=== PATIENT | female | born 1990 | race Caucasian/White ===

== ENCOUNTER 2016-04-15 20:25 | Emergency (ER) | payer OTHER ==
[2016-04-15 21:36] LABS: BASO % 0.6 % (0.0-1.0); EOS # 0.1 K/mm3 (0.0-0.50); EOS % 1.1 % (0.0-3.0); LARGE UNSTAINED CELL # 0.2 K/mm3 (0.0-0.4); LARGE UNSTAINED CELL % 2.4 % (0.0-4.0); LYMPH # 2.9 K/mm3 (1.5-6.5); LYMPH % 34.1 % (24.0-44.0); MEAN CORPUSCULAR HEMOGLOBIN 28.2 pg (27.0-33.0); MEAN CORPUSCULAR HGB CONC 33.6 g/dl (32.0-36.5); MEAN CORPUSCULAR VOLUME 83.9 fl (80.0-96.0); MONO # 0.4 K/mm3 (0.0-0.8); MONO % 4.9 % (0.0-5.0); NEUTROPHILS # 4.8 K/mm3 (1.8-7.7); NEUTROPHILS % 56.8 % (36.0-66.0); PLATELET COUNT, AUTOMATED 371 k/mm3 (150-450); RED CELL DISTRIBUTION WIDTH 13.3 % (11.5-14.5); WHITE BLOOD COUNT 8.4 K/mm3 (4.0-10.0)
--- NOTE | 2016-04-16 | REPUSA ---
CLINICAL HISTORY: , pain TECHNIQUE: Pelvic ultrasound COMPARISON: No study for comparison is available at the time of interpretation. Uterus: Normal without masses. Endometrial stripe: Early gestational sac with yolk sac, without pole. Ovaries: Normal size. 1.7 cm left corpus luteal cyst. Pelvic fluid: None. IMPRESSION: Gestational sac at 5 weeks 5 days, with yolk sac but without pole. Recommended clos e clinical correlation with serial beta hCG's to establish viability, and follow-up ultrasound if bet a hCG's are increasing.
--- NOTE | 2016-04-16 00:09 | EDDOCDS ---
Physician Documentation [facility] Name: Polly Mercado Age: 26 yrs Sex: Female : 1990 Arrival Date: 04/15/2016 Time: 20:25 Bed TR7 Private MD: Hari Dalton R Disposition: 04/15/16 23:58 Discharged to Home/Self Care. Impression: Abdominal and pelvic pain - discomfort of , first trimester. - Condition is Stable. - Discharge Instructions: First Trimester of , Abdominal Pain During . - Medication Reconciliation, Local Pharmacy Hours form. - Follow up: Anthony Sheppard MD; When: Call to arrange an appointment; Reason: Recheck today's complaints, Continuance of care. Follow up: Emergency Department; When: As needed; Reason: Fever > 102F, Worsening of conditions, vaginal bleeding. - Problem is new. - Symptoms are unchanged. Historical: - Allergies: Latex; - Home Meds: 1. none - PMHx: Seasonal Allergies; - PSHx: ; Orthopedic Surgery; - Social history: Smoking status: Patient states was never smoker of tobacco. No barriers to communication noted, The patient speaks fluent Togolese, Speaks appropriately for age. - Family history: Not pertinent. - : The pt / caregiver states he / she is not on anticoagulants. Home medication list is obtained from the patient. - Exposure Risk Screening:: None identified. 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 6 in. (167.64 cm) (R); Pain 4/10; 23:52 BP 129 / 62; Pulse 90; Resp 16; Temp 98.2(T); Pulse Ox 98% on R/A; cz 20:27 Body Mass Index 37.12 (104.33 kg, 167.64 cm) gr2 MDM: 21:16 Set up pelvic ordered. ar2 21:17 Rh Only Ordered. EDMS 21:17 CBC with Diff Ordered. EDMS 21:17 Hcg, Serum Quantitative Ordered. EDMS 21:17 UA Ordered. EDMS 21:17 GC & Chlamydia Amplification Ordered. EDMS 21:17 Wet Prep Ordered. EDMS 21:17 US 1st trimester Ordered. EDMS 22:06 CBC with Diff Reviewed. ar2 22:06 Rh Only Reviewed. ar2 22:06 UA Reviewed. ar2 22:06 Wet Prep Reviewed. ar2 22:44 Financial registration complete. ks16 22:49 [facility] Payment Agreement was scanned into [employer] and attached to record. ks16 22:57 Hcg, Serum Quantitative Reviewed. ar2 Signatures: Dispatcher [employer] EDMS Trevor Coffman, GARETH RN cz Aaron Yañez PA-C PARuss ar2 Sabrina Tavera RN RN dsf Mahogany Cohen, Reg Reg ks16 The chart was reviewed and I authenticate all verbal orders and agree with the evaluation and treatment provided.Attachments: 22:49 [facility] Payment Agreement ks16 MTDD
--- NOTE | 2016-04-16 00:09 | EDDOCDS ---
Nurse's Notes [facility] Name: Polly Mercado Age: 26 yrs Sex: Female : 1990 Arrival Date: 04/15/2016 Time: 20:25 Bed TR7 Private MD: Hari Dalton R Diagnosis: Abdominal and pelvic pain-discomfort of , first trimester Presentation: 04/15 20:34 Presenting complaint: Patient states: abdominal cramping and a vaginal odor. Pt states dsf she had discharge 1 week ago but noticed an odor this morning. Risk factors: the patient reports no vaginal bleeding. Adult Sepsis Screening: The patient does not have new or worsening altered mentation. Patient's respiratory rate is less than 22. Systolic blood pressure is greater than 100. Patient has a qSOFA score of 0- Negative Sepsis Screen. Suicide/Homicide risk assessment- the patient denies having any suicidal and/or homicidal ideations and does not present with any other emotional, behavioral or mental health complaints. Status: The patient is a dependent. Transition of care: patient was not received from another setting of care. 20:34 Acuity: ALIZE Level 4 dsf 20:34 Method Of Arrival: Walkin/Carried/Asstd dsf Triage Assessment: 20:36 General: Appears in no apparent distress, Behavior is appropriate for age, cooperative. dsf Pain: Location: right lower quadrant and left lower quadrant Pain currently is 4 out of 10 on a pain scale. Quality of pain is described as crampy. HIV screening NA for this visit Offered previously. GI: Reports cramping, lower abdominal pain. : Reports discharge from vagina that is white, since 1 week ago. 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 none - PMHx: Seasonal Allergies; - PSHx: ; Orthopedic Surgery; - Social history: Smoking status: Patient states was never smoker of tobacco. No barriers to communication noted, The patient speaks fluent Ethiopian, Speaks appropriately for age. - Family history: Not pertinent. - : The pt / caregiver states he / she is not on anticoagulants. Home medication list is obtained from the patient. - Exposure Risk Screening:: None identified. Screenin:53 Screening information is obtained from the patient. Fall risk: No risks identified. cz Assistance ADL's: requires no assistance with activities of daily living. Abuse/DV Screen: The patient / caregiver reports he/she is: not in a situation that causes fear, pain or injury. Nutritional screening: No deficits noted. Advance Directives: Currently, there is no health care proxy. There is no active DNR order. There is no living will. There is no Power of Weights And Measures Inspector. Advance directive information has not previously been placed in an [facility] medical record. home support is adequate. Assessment: 23:53 General: Appears in no apparent distress, Behavior is appropriate for age. : No cz deficits noted. Reports vaginal order. Vital Signs: 20:27 BP 145 / 65; Pulse 103; Resp 18 S; Temp 98.5(O); Pulse Ox 99% on R/A; Weight 104.33 kg gr2 (R); Height 5 ft. 6 in. (167.64 cm) (R); Pain 4/10; 23:52 BP 129 / 62; Pulse 90; Resp 16; Temp 98.2(T); Pulse Ox 98% on R/A; cz 20:27 Body Mass Index 37.12 (104.33 kg, 167.64 cm) gr2 Vitals: 20:27 Log In Time: April 15, 2016 at 20:27. gr2 ED Course: 20:26 Patient visited by Sherman Garduno. gr2 20:26 Patient moved to Waiting gr2 20:27 Hari Dalton is Private Physician. gr2 20:28 Patient visited by Sherman Garduno. gr2 20:28 Patient moved to Pre RCE gr2 20:35 Triage Initiated dsf 20:50 Patient moved to Triage 3 cz 20:58 Aaron Yañez PA-C is PHCP. ar2 20:58 Christo Chadwick DO is Attending Physician. ar2 21:10 Patient visited by Aaron Yañez PA-C. ar2 21:27 Patient visited by Dennis Macias RN. jf3 21:27 Rh Only Sent. jf3 21:27 Hcg, Serum Quantitative Sent. jf3 21:27 CBC with Diff Sent. jf3 21:27 Labs drawn. (by ED staff). Sent per order to lab. jf3 21:35 Wet Prep Sent. pooja 21:35 GC & Chlamydia Amplification Sent. pooja 21:35 Assist provider with pelvic exam: Set up pelvic tray. Specimens sent to lab. pooja 21:36 Patient moved to jmv 22:49 Patient visited by Trevor Coffman RN. cz 22:49 [facility] Payment Agreement was scanned into [employer] and attached to record. ks16 23:27 Patient visited by Trevor Coffman RN. cz 23:53 The patient / caregiver is instructed regarding the plan of care and ED course. cz 23:53 No IV's were initiated during this patient's visit. cz 23:56 Anthony Sheppard MD is Referral Physician. ar2 04/16 00:04 Patient moved to 7 cz Order Results: Lab Order: CBC with Diff; SPEC'M 04/15/16 21:25 Test: WHITE BLOOD COUNT; Value: 8.4; Range: 4.0-10.0; Units: K/mm3; Status: F Test: RED BLOOD COUNT; Value: 4.69; Range: 4.00-5.40; Units: M/mm3; Status: F Test: HEMOGLOBIN; Value: 13.2; Range: 12.0-16.0; Units: g/dl; Status: F Test: HEMATOCRIT; Value: 39.4; Range: 36.0-47.0; Units: %; Status: F Test: MEAN CORPUSCULAR VOLUME; Value: 83.9; Range: 80.0-96.0; Units: fl; Status: F Test: MEAN CORPUSCULAR HEMOGLOBIN; Value: 28.2; Range: 27.0-33.0; Units: pg; Status: F Test: MEAN CORPUSCULAR HGB CONC; Value: 33.6; Range: 32.0-36.5; Units: g/dl; Status: F Test: RED CELL DISTRIBUTION WIDTH; Value: 13.3; Range: 11.5-14.5; Units: %; Status: F Test: PLATELET COUNT, AUTOMATED; Value: 371; Range: 150-450; Units: k/mm3; Status: F Test: NEUTROPHILS %; Value: 56.8; Range: 36.0-66.0; Units: %; Status: F Test: LYMPH %; Value: 34.1; Range: 24.0-44.0; Units: %; Status: F Test: MONO %; Value: 4.9; Range: 0.0-5.0; Units: %; Status: F Test: EOS %; Value: 1.1; Range: 0.0-3.0; Units: %; Status: F Test: BASO %; Value: 0.6; Range: 0.0-1.0; Units: %; Status: F Test: LARGE UNSTAINED CELL %; Value: 2.4; Range: 0.0-4.0; Units: %; Status: F Test: NEUTROPHILS #; Value: 4.8; Range: 1.8-7.7; Units: K/mm3; Status: F Test: LYMPH #; Value: 2.9; Range: 1.5-6.5; Units: K/mm3; Status: F Test: MONO #; Value: 0.4; Range: 0.0-0.8; Units: K/mm3; Status: F Test: EOS #; Value: 0.1; Range: 0.0-0.50; Units: K/mm3; Status: F Test: BASO #; Value: 0.0; Range: 0.0-0.2; Units: K/mm3; Status: F Test: LARGE UNSTAINED CELL #; Value: 0.2; Range: 0.0-0.4; Units: K/mm3; Status: F Lab Order: Hcg, Serum Quantitative; SPEC'M 04/15/16 21:25 Test: HCG, SERUM QUANTITATIVE; Value: 3869; Units: MIU/ML; Status: F Test Note: ; GESTATIONAL AGE APPROXIMATE HCG RANGE (MIU/ML) 0.2-1 WEEK 5-50 1-2 WEEKS 50-500 2-3 WEEKS 100-5,000 3-4 WEEKS 500-10,000 4-5 WEEKS 1,000-50,000 5-6 WEEKS 10,000-100,000 6-8 WEEKS 15,000-200,000 2-3 MONTHS 10,000-100,000 NON FEMALES LESS THAN 3.0 Patient samples may contain human heterophilic antibodies that could react with immunoassays to give falsely elevated or depressed results. This assay has been designed to minimize interference from heterophilic antibodies. Elevated hCG levels have also been associated with trophoblastic disease and nontrophoblastic neoplasms. The possibility of having these diseases should be considered before a diagnosis of is made. This test is not intended for use as a surrogate marker for aiding in the diagnosis or monitoring the treatment of cancer patients. [employer] methodology. Lab Order: Rh Only; SPEC'M 04/15/16 21:25 Test: RH; Value: POSITIVE; Status: F Lab Order: UA; SPEC'M 04/15/16 21:25 Test: APPEARANCE, URINE; Value: HAZY; Range: CLEAR; Status: F Test: COLOR, URINE; Value: YELLOW; Range: YELLOW; Status: F Test: PH,URINE; Value: 5.0; Range: 5.0-9.0; Units: UNITS; Status: F Test: SPECIFIC GRAVITY URINE AUTO; Value: 1.016; Range: 1.002-1.035; Status: F Test: PROTEIN, URINE AUTO; Value: NEGATIVE; Range: NEGATIVE; Units: mg/dL; Status: F Test: GLUCOSE, URINE (UA) AUTO; Value: NEGATIVE; Range: NEGATIVE; Units: mg/dL; Status: F Test: KETONE, URINE AUTO; Value: NEGATIVE; Range: NEGATIVE; Units: mg/dL; Status: F Test: UROBILINOGEN, URINE AUTO; Value: 0.2; Range: 0.0-2.0; Units: mg/dL; Status: F Test: BILIRUBIN, URINE AUTO; Value: NEGATIVE; Range: NEGATIVE; Status: F Test: NITRITE, URINE AUTO; Value: NEGATIVE; Range: NEGATIVE; Status: F Test: LEUKOCYTE ESTERASE, URINE AUTO; Value: NEGATIVE; Range: NEGATIVE; Status: F Test: BLOOD, URINE BLOOD; Value: NEGATIVE; Range: NEGATIVE; Status: F Test: WBC, URINE AUTO; Value: 1; Range: 0-3; Units: /HPF; Status: F Test: RBC, URINE AUTO; Value: 3; Range: 0-3; Units: /HPF; Status: F Test: BACTERIA, URINE AUTO; Value: NEGATIVE; Range: NEGATIVE; Status: F Test: SQUAMOUS EPITHELIAL CELL UR AU; Value: 6; Range: 0-6; Units: /HPF; Status: F Test: MUCUS, URINE; Value: SMALL; Range: NEGATIVE; Status: F Test: HYALINE CAST, URINE AUTO; Value: 0; Range: 0-1; Units: /LPF; Status: F Lab Order: Wet Prep; SPEC'M 04/15/16 21:25 Test: WET PREP; Value: WET PREP RESULT; Status: F Test: WET PREP; Value: MODERATE WBC; Status: F Test: WET PREP; Value: FEW RBC; Status: F Test: WET PREP; Value: MODERATE EPITHELIAL CELLS PRESENT; Status: F Test: WET PREP; Value: MANY LONG RODS PRESENT; Status: F Outcome: 04/15 23:58 Discharge ordered by Provider. ar2 04/16 00:05 Discharge Assessment: Patient awake, alert and oriented x 3. No cognitive and/or cz functional deficits noted. Patient verbalized understanding of disposition instructions. patient administered narcotics - no. The following High Risk Discharge criteria are identified: None. Discharged to home ambulatory. Condition: stable. Discharge instructions given to patient, Instructed on discharge instructions, follow up and referral plans. Demonstrated understanding of instructions, Pt was receptive of discharge instructions/ teaching. No special radiology studies were completed. Property :Personal belongings accompany Pt. 00:07 Patient left the ED. cz Signatures: Trevor Coffman, RN RN Aaron John, PAJohnnieC PA-C ar2 Pretty Espinal, COMPUTER TESTER COMPUTER TESTER Sabrina Paulson,RN RN Sherman Iraheta gr2 Dennis Macias RN RN jf3 Mahogany Cohen, Reg Reg ks16 Sj Martin, COMPUTER TESTER COMPUTER TESTER jmv MTDD
--- NOTE | 2016-04-18 12:05 | EDDOCDS ---
Physician Documentation [facility] Name: Polly Mercado Age: 26 yrs Sex: Female : 1990 Arrival Date: 04/15/2016 Time: 20:25 Bed TR7 Private MD: Hari Dalton R Disposition: 04/15/16 23:58 Discharged to Home/Self Care. Impression: Abdominal and pelvic pain - discomfort of , first trimester. - Condition is Stable. - Discharge Instructions: First Trimester of , Abdominal Pain During . - Medication Reconciliation, Local Pharmacy Hours form. - Follow up: Anthony Sheppard MD; When: Call to arrange an appointment; Reason: Recheck today's complaints, Continuance of care. Follow up: Emergency Department; When: As needed; Reason: Fever > 102F, Worsening of conditions, vaginal bleeding. - Problem is new. - Symptoms are unchanged. Historical: - Allergies: Latex; - Home Meds: 1. none - PMHx: Seasonal Allergies; - PSHx: ; Orthopedic Surgery; - Social history: Smoking status: Patient states was never smoker of tobacco. No barriers to communication noted, The patient speaks fluent Kosovan, Speaks appropriately for age. - Family history: Not pertinent. - : The pt / caregiver states he / she is not on anticoagulants. Home medication list is obtained from the patient. - Exposure Risk Screening:: None identified. 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 6 in. (167.64 cm) (R); Pain 4/10; 23:52 BP 129 / 62; Pulse 90; Resp 16; Temp 98.2(T); Pulse Ox 98% on R/A; cz 20:27 Body Mass Index 37.12 (104.33 kg, 167.64 cm) gr2 MDM: 21:16 Set up pelvic ordered. ar2 21:17 Rh Only Ordered. EDMS 21:17 CBC with Diff Ordered. EDMS 21:17 Hcg, Serum Quantitative Ordered. EDMS 21:17 UA Ordered. EDMS 21:17 GC & Chlamydia Amplification Ordered. EDMS 21:17 Wet Prep Ordered. EDMS 21:17 US 1st trimester Ordered. EDMS 22:06 CBC with Diff Reviewed. ar2 22:06 Rh Only Reviewed. ar2 22:06 UA Reviewed. ar2 22:06 Wet Prep Reviewed. ar2 22:44 Financial registration complete. ks16 22:49 [facility] Payment Agreement was scanned into [employer] and attached to record. ks 22:57 Hcg, Serum Quantitative Reviewed. [facility] 04/16 08:28 T-Sheet-- Draft Copy was scanned into [employer] and attached to record. [facility] 08:52 Radiology Report was scanned into [employer] and attached to record. gb Signatures: Dispatcher [employer] Trevor Heredia, Hortensia Shah RN, Reg Reg gb Aaron Yañez, PARuss CORTES ar2 Sabrina Tavera RN RN dsf Sorenson, Kimberly, Reg Reg ks16 Concetta Boudreaux se The chart was reviewed and I authenticate all verbal orders and agree with the evaluation and treatment provided.Attachments: 04/15 22:49 [facility] Payment Agreement rust 04/16 08:28 T-Sheet-- Draft Copy [facility] Chart Complete MTDD
--- NOTE | 2016-04-18 12:05 | EDDOCDS ---
Physician Documentation [facility] Name: Polly Mercado Age: 26 yrs Sex: Female : 1990 Arrival Date: 04/15/2016 Time: 20:25 Bed TR7 Private MD: Hari Dalton R Disposition: 04/15/16 23:58 Discharged to Home/Self Care. Impression: Abdominal and pelvic pain - discomfort of , first trimester. - Condition is Stable. - Discharge Instructions: First Trimester of , Abdominal Pain During . - Medication Reconciliation, Local Pharmacy Hours form. - Follow up: Anthony Sheppard MD; When: Call to arrange an appointment; Reason: Recheck today's complaints, Continuance of care. Follow up: Emergency Department; When: As needed; Reason: Fever > 102F, Worsening of conditions, vaginal bleeding. - Problem is new. - Symptoms are unchanged. Historical: - Allergies: Latex; - Home Meds: 1. none - PMHx: Seasonal Allergies; - PSHx: ; Orthopedic Surgery; - Social history: Smoking status: Patient states was never smoker of tobacco. No barriers to communication noted, The patient speaks fluent Kazakh, Speaks appropriately for age. - Family history: Not pertinent. - : The pt / caregiver states he / she is not on anticoagulants. Home medication list is obtained from the patient. - Exposure Risk Screening:: None identified. 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 6 in. (167.64 cm) (R); Pain 4/10; 23:52 BP 129 / 62; Pulse 90; Resp 16; Temp 98.2(T); Pulse Ox 98% on R/A; cz 20:27 Body Mass Index 37.12 (104.33 kg, 167.64 cm) gr2 MDM: 21:16 Set up pelvic ordered. ar2 21:17 Rh Only Ordered. EDMS 21:17 CBC with Diff Ordered. EDMS 21:17 Hcg, Serum Quantitative Ordered. EDMS 21:17 UA Ordered. EDMS 21:17 GC & Chlamydia Amplification Ordered. EDMS 21:17 Wet Prep Ordered. EDMS 21:17 US 1st trimester Ordered. EDMS 22:06 CBC with Diff Reviewed. ar2 22:06 Rh Only Reviewed. ar2 22:06 UA Reviewed. ar2 22:06 Wet Prep Reviewed. ar2 22:44 Financial registration complete. ks16 22:49 [facility] [place] Payment Agreement was scanned into [employer] and attached to record. ks 22:57 Hcg, Serum Quantitative Reviewed. [facility] [place] 04/16 08:28 T-Sheet-- Draft Copy was scanned into [employer] and attached to record. [facility] 08:52 Radiology Report was scanned into [employer] and attached to record. gb Signatures: Dispatcher [employer] Trevor Heredia, Hortensia Shah RN, Reg Reg gb Aaron Yañez, PARuss CORTES ar2 Sabrina Tavera RN RN dsf Sorenson, Kimberly, Reg Reg ks16 Concetta Boudreaux se The chart was reviewed and I authenticate all verbal orders and agree with the evaluation and treatment provided.Attachments: 04/15 22:49 [facility] [place] Payment Agreement [facility] 04/16 08:28 T-Sheet-- Draft Copy [facility] Chart Complete MTDD
--- NOTE | 2016-04-18 12:05 | EDDOCDS ---
Nurse's Notes [facility] Name: Polly Mercado Age: 26 yrs Sex: Female : 1990 Arrival Date: 04/15/2016 Time: 20:25 Bed TR7 Private MD: Hari Dalton R Diagnosis: Abdominal and pelvic pain-discomfort of , first trimester Presentation: 04/15 20:34 Presenting complaint: Patient states: abdominal cramping and a vaginal odor. Pt states dsf she had discharge 1 week ago but noticed an odor this morning. Risk factors: the patient reports no vaginal bleeding. Adult Sepsis Screening: The patient does not have new or worsening altered mentation. Patient's respiratory rate is less than 22. Systolic blood pressure is greater than 100. Patient has a qSOFA score of 0- Negative Sepsis Screen. Suicide/Homicide risk assessment- the patient denies having any suicidal and/or homicidal ideations and does not present with any other emotional, behavioral or mental health complaints. Status: The patient is a dependent. Transition of care: patient was not received from another setting of care. 20:34 Acuity: ALIZE Level 4 dsf 20:34 Method Of Arrival: Walkin/Carried/Asstd dsf Triage Assessment: 20:36 General: Appears in no apparent distress, Behavior is appropriate for age, cooperative. dsf Pain: Location: right lower quadrant and left lower quadrant Pain currently is 4 out of 10 on a pain scale. Quality of pain is described as crampy. HIV screening NA for this visit Offered previously. GI: Reports cramping, lower abdominal pain. : Reports discharge from vagina that is white, since 1 week ago. VISUAL COORDINATOR: 20:36 pt states she is pregannt does not know when her last period was dsf Historical: - Allergies: Latex; - Home Meds: 1. none - PMHx: Seasonal Allergies; - PSHx: ; Orthopedic Surgery; - Social history: Smoking status: Patient states was never smoker of tobacco. No barriers to communication noted, The patient speaks fluent Sammarinese, Speaks appropriately for age. - Family history: Not pertinent. - : The pt / caregiver states he / she is not on anticoagulants. Home medication list is obtained from the patient. - Exposure Risk Screening:: None identified. Screenin:53 Screening information is obtained from the patient. Fall risk: No risks identified. cz Assistance ADL's: requires no assistance with activities of daily living. Abuse/DV Screen: The patient / caregiver reports he/she is: not in a situation that causes fear, pain or injury. Nutritional screening: No deficits noted. Advance Directives: Currently, there is no health care proxy. There is no active DNR order. There is no living will. There is no Power of Searchlight Operator. Advance directive information has not previously been placed in an [facility] medical record. home support is adequate. Assessment: 23:53 General: Appears in no apparent distress, Behavior is appropriate for age. : No cz deficits noted. Reports vaginal order. Vital Signs: 20:27 BP 145 / 65; Pulse 103; Resp 18 S; Temp 98.5(O); Pulse Ox 99% on R/A; Weight 104.33 kg gr2 (R); Height 5 ft. 6 in. (167.64 cm) (R); Pain 4/10; 23:52 BP 129 / 62; Pulse 90; Resp 16; Temp 98.2(T); Pulse Ox 98% on R/A; cz 20:27 Body Mass Index 37.12 (104.33 kg, 167.64 cm) gr2 Vitals: 20:27 Log In Time: April 15, 2016 at 20:27. gr2 ED Course: 20:26 Patient visited by Sherman Garduno. gr2 20:26 Patient moved to Waiting gr2 20:27 Hari Dalton is Private Physician. gr2 20:28 Patient visited by Sherman Garduno. gr2 20:28 Patient moved to Pre RCE gr2 20:35 Triage Initiated dsf 20:50 Patient moved to Triage 3 cz 20:58 Aaron Yañez PA-C is PHCP. ar2 20:58 Christo Chadwick DO is Attending Physician. ar2 21:10 Patient visited by Aaron Yañez PA-C. ar2 21:27 Patient visited by Dennis Macias RN. jf3 21:27 Rh Only Sent. jf3 21:27 Hcg, Serum Quantitative Sent. jf3 21:27 CBC with Diff Sent. jf3 21:27 Labs drawn. (by ED staff). Sent per order to lab. jf3 21:35 Wet Prep Sent. pooja 21:35 GC & Chlamydia Amplification Sent. pooja 21:35 Assist provider with pelvic exam: Set up pelvic tray. Specimens sent to lab. pooja 21:36 Patient moved to PR jmv 22:49 Patient visited by Trevor Coffman RN. cz 22:49 [facility] Payment Agreement was scanned into FFWD and attached to record. ks16 23:27 Patient visited by Trevor Coffman RN. cz 23:53 The patient / caregiver is instructed regarding the plan of care and ED course. cz 23:53 No IV's were initiated during this patient's visit. cz 23:56 Anthony Sheppard MD is Referral Physician. ar2 04/16 00:04 Patient moved to [facility] cz 00:21 1st trimester Returned. EDMS 08:28 T-Sheet-- Draft Copy was scanned into FFWD and attached to record. [facility] 08:52 Radiology Report was scanned into FFWD and attached to record. gb Order Results: Lab Order: CBC with Diff; SPEC'M 04/15/16 21:25 Test: WHITE BLOOD COUNT; Value: 8.4; Range: 4.0-10.0; Units: K/mm3; Status: F Test: RED BLOOD COUNT; Value: 4.69; Range: 4.00-5.40; Units: M/mm3; Status: F Test: HEMOGLOBIN; Value: 13.2; Range: 12.0-16.0; Units: g/dl; Status: F Test: HEMATOCRIT; Value: 39.4; Range: 36.0-47.0; Units: %; Status: F Test: MEAN CORPUSCULAR VOLUME; Value: 83.9; Range: 80.0-96.0; Units: fl; Status: F Test: MEAN CORPUSCULAR HEMOGLOBIN; Value: 28.2; Range: 27.0-33.0; Units: pg; Status: F Test: MEAN CORPUSCULAR HGB CONC; Value: 33.6; Range: 32.0-36.5; Units: g/dl; Status: F Test: RED CELL DISTRIBUTION WIDTH; Value: 13.3; Range: 11.5-14.5; Units: %; Status: F Test: PLATELET COUNT, AUTOMATED; Value: 371; Range: 150-450; Units: k/mm3; Status: F Test: NEUTROPHILS %; Value: 56.8; Range: 36.0-66.0; Units: %; Status: F Test: LYMPH %; Value: 34.1; Range: 24.0-44.0; Units: %; Status: F Test: MONO %; Value: 4.9; Range: 0.0-5.0; Units: %; Status: F Test: EOS %; Value: 1.1; Range: 0.0-3.0; Units: %; Status: F Test: BASO %; Value: 0.6; Range: 0.0-1.0; Units: %; Status: F Test: LARGE UNSTAINED CELL %; Value: 2.4; Range: 0.0-4.0; Units: %; Status: F Test: NEUTROPHILS #; Value: 4.8; Range: 1.8-7.7; Units: K/mm3; Status: F Test: LYMPH #; Value: 2.9; Range: 1.5-6.5; Units: K/mm3; Status: F Test: MONO #; Value: 0.4; Range: 0.0-0.8; Units: K/mm3; Status: F Test: EOS #; Value: 0.1; Range: 0.0-0.50; Units: K/mm3; Status: F Test: BASO #; Value: 0.0; Range: 0.0-0.2; Units: K/mm3; Status: F Test: LARGE UNSTAINED CELL #; Value: 0.2; Range: 0.0-0.4; Units: K/mm3; Status: F Lab Order: Hcg, Serum Quantitative; SPEC'M 04/15/16 21:25 Test: HCG, SERUM QUANTITATIVE; Value: 3869; Units: MIU/ML; Status: F Test Note: ; GESTATIONAL AGE APPROXIMATE HCG RANGE (MIU/ML) 0.2-1 WEEK 5-50 1-2 WEEKS 50-500 2-3 WEEKS 100-5,000 3-4 WEEKS 500-10,000 4-5 WEEKS 1,000-50,000 5-6 WEEKS 10,000-100,000 6-8 WEEKS 15,000-200,000 2-3 MONTHS 10,000-100,000 NON FEMALES LESS THAN 3.0 Patient samples may contain human heterophilic antibodies that could react with immunoassays to give falsely elevated or depressed results. This assay has been designed to minimize interference from heterophilic antibodies. Elevated hCG levels have also been associated with trophoblastic disease and nontrophoblastic neoplasms. The possibility of having these diseases should be considered before a diagnosis of is made. This test is not intended for use as a surrogate marker for aiding in the diagnosis or monitoring the treatment of cancer patients. Siemens Zogenix methodology. Lab Order: Rh Only; SPEC'M 04/15/16 21:25 Test: RH; Value: POSITIVE; Status: F Lab Order: UA; SPEC'M 04/15/16 21:25 Test: APPEARANCE, URINE; Value: HAZY; Range: CLEAR; Status: F Test: COLOR, URINE; Value: YELLOW; Range: YELLOW; Status: F Test: PH,URINE; Value: 5.0; Range: 5.0-9.0; Units: UNITS; Status: F Test: SPECIFIC GRAVITY URINE AUTO; Value: 1.016; Range: 1.002-1.035; Status: F Test: PROTEIN, URINE AUTO; Value: NEGATIVE; Range: NEGATIVE; Units: mg/dL; Status: F Test: GLUCOSE, URINE (UA) AUTO; Value: NEGATIVE; Range: NEGATIVE; Units: mg/dL; Status: F Test: KETONE, URINE AUTO; Value: NEGATIVE; Range: NEGATIVE; Units: mg/dL; Status: F Test: UROBILINOGEN, URINE AUTO; Value: 0.2; Range: 0.0-2.0; Units: mg/dL; Status: F Test: BILIRUBIN, URINE AUTO; Value: NEGATIVE; Range: NEGATIVE; Status: F Test: NITRITE, URINE AUTO; Value: NEGATIVE; Range: NEGATIVE; Status: F Test: LEUKOCYTE ESTERASE, URINE AUTO; Value: NEGATIVE; Range: NEGATIVE; Status: F Test: BLOOD, URINE BLOOD; Value: NEGATIVE; Range: NEGATIVE; Status: F Test: WBC, URINE AUTO; Value: 1; Range: 0-3; Units: /HPF; Status: F Test: RBC, URINE AUTO; Value: 3; Range: 0-3; Units: /HPF; Status: F Test: BACTERIA, URINE AUTO; Value: NEGATIVE; Range: NEGATIVE; Status: F Test: SQUAMOUS EPITHELIAL CELL UR AU; Value: 6; Range: 0-6; Units: /HPF; Status: F Test: MUCUS, URINE; Value: SMALL; Range: NEGATIVE; Status: F Test: HYALINE CAST, URINE AUTO; Value: 0; Range: 0-1; Units: /LPF; Status: F Lab Order: Wet Prep; SPEC'M 04/15/16 21:25 Test: WET PREP; Value: WET PREP RESULT; Status: F Test: WET PREP; Value: MODERATE WBC; Status: F Test: WET PREP; Value: FEW RBC; Status: F Test: WET PREP; Value: MODERATE EPITHELIAL CELLS PRESENT; Status: F Test: WET PREP; Value: MANY LONG RODS PRESENT; Status: F Lab Order: GC & Chlamydia Amplification; SPEC'M 04/15/16 21:25 Test: CHLAMYDIA DNA AMPLIFICATION; Value: NEGATIVE; Range: NEGATIVE; Status: F Test: GC DNA AMPLIFICATION; Value: NEGATIVE; Range: NEGATIVE; Status: F Radiology Order: US 1st trimester Test: US 1st trimester REASON FOR EXAMINATION: pelvic pain, ? LMP; ; CLINICAL HISTORY: , pain; ; TECHNIQUE: Pelvic ultrasound; ; COMPARISON: No study for comparison is available at the time of interpretation.; ; Uterus: Normal without masses.; Endometrial stripe: Early gestational sac with yolk sac, without pole.; Ovaries: Normal size. 1.7 cm left corpus luteal cyst.; Pelvic fluid: None.; ; IMPRESSION: Gestational sac at 5 weeks 5 days, with yolk sac but without pole. Recommended clos; e clinical correlation with serial beta hCG's to establish viability, and follow-up ultrasound if bet; a hCG's are increasing.; ; Outcome: 04/15 23:58 Discharge ordered by Provider. ar2 04/16 00:05 Discharge Assessment: Patient awake, alert and oriented x 3. No cognitive and/or cz functional deficits noted. Patient verbalized understanding of disposition instructions. patient administered narcotics - no. The following High Risk Discharge criteria are identified: None. Discharged to home ambulatory. Condition: stable. Discharge instructions given to patient, Instructed on discharge instructions, follow up and referral plans. Demonstrated understanding of instructions, Pt was receptive of discharge instructions/ teaching. No special radiology studies were completed. Property :Personal belongings accompany Pt. 00:07 Patient left the ED. cz Signatures: Dispatcher [employer] EDTrevor Alcazar, GARETH RN Hortensia Apple, Reg Reg gb Aaron Yañez, PARuss PARuss ar2 Pretty Espinal, MIDDLE SCHOOL DIRECTOR MIDDLE SCHOOL DIRECTOR Sabrina Paulson RN RN dsf Raymond, Gainslee gr2 Dennis Macias RN RN jf3 Mahogany Cohen, Reg Reg ks16 Kanika, Sj Walter, MIDDLE SCHOOL DIRECTOR MIDDLE SCHOOL DIRECTOR jmv Chart Complete MTDD
== END 2016-04-16 00:07 | disposition home or self-care (01) ==
LOC: M ED 20:25
DX: O26.891 Other specified pregnancy related conditions, first trimester (principal); N89.8 Other specified noninflammatory disorders of vagina; Z3A.01 Less than 8 weeks gestation of pregnancy; O99.511 Diseases of the respiratory system complicating pregnancy, first trimester; J30.2 Other seasonal allergic rhinitis; Z91.040 Latex allergy status

== ENCOUNTER 2016-04-22 15:09 | Emergency (ER) | payer OTHER ==
[2016-04-22 16:15] LABS: MEAN CORPUSCULAR HEMOGLOBIN 28.6 pg (27.0-33.0); MEAN CORPUSCULAR HGB CONC 33.8 g/dl (32.0-36.5); MEAN CORPUSCULAR VOLUME 84.8 fl (80.0-96.0); RED CELL DISTRIBUTION WIDTH 14.1 % (11.5-14.5); WHITE BLOOD COUNT 7.4 K/mm3 (4.0-10.0)
--- NOTE | 2016-04-22 19:11 | EDDOCDS ---
Physician Documentation [facility] Name: Polly Mercado Age: 26 yrs Sex: Female : 1990 Arrival Date: 04/22/2016 Time: 15:09 Bed 7 Private MD: Shawn [facility] Disposition: 04/22 19:00 Critical Care: Critical care not applicable. le Disposition: 04/22/16 18:57 Discharged to Home/Self Care. Impression: Threatened . - Condition is Stable. - Discharge Instructions: Threatened Miscarriage, Pelvic Rest. - Medication Reconciliation, Local Pharmacy Hours form. - Follow up: Radha Colon, OB; When: Call to arrange an appointment; Reason: Recheck today's complaints, Continuance of care. - Problem is new. - Symptoms are unchanged. - Notes: Your sonogram reveals a subchorionic hemorrhage, this needs to be followed by your atmospheric technician Return to the ED for severe abdominal pain, heavy vaginal bleeding, fever or any other concerns Historical: - Allergies: Latex; - Home Meds: 1. Vitamin Oral tab 1 tab once daily - PMHx: Seasonal Allergies; - PSHx: ; Orthopedic Surgery; intrauterine repair; - Social history: Smoking status: Patient states was never smoker of tobacco. No barriers to communication noted, The patient speaks fluent Thai, Speaks appropriately for age. - Family history: Not pertinent. - : The pt / caregiver states he / she is not on anticoagulants. Home medication list is obtained from the patient. - Exposure Risk Screening:: None identified. 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 5 in. (165.10 cm); Pain 5/10; 18:32 BP 120 / 67; Pulse 103; Resp 18; Temp 98.5(O); Pulse Ox 95% on R/A; Pain 0/10; ck1 19:10 BP 137 / 70; Pulse 87; Resp 18; Temp 100; Pulse Ox 97% on R/A; Pain 2/10; nn1 15:11 Body Mass Index 38.27 (104.33 kg, 165.10 cm) elp MDM: 15:32 Hcg, Serum Quantitative Ordered. EDMS 15:32 CBC Ordered. EDMS 15:32 Type & Screen Ordered. EDMS 15:50 Set up pelvic ordered. le 15:50 Wet Prep Ordered. EDMS 15:50 GC & Chlamydia Amplification Ordered. EDMS 16:34 US 1st trimester Ordered. EDMS 17:04 Hcg, Serum Quantitative Reviewed. le 17:04 Type & Screen Reviewed. le 17:04 CBC Reviewed. le 17:04 Wet Prep Reviewed. le 17:04 Financial registration complete. zo 17:05 [facility] Payment Agreement was scanned into [employer] and attached to record. zo 18:03 TRANSVAGINAL US Ordered. EDMS Signatures: Dispatcher [employer] EDCoco Erickson,RN RN ck1 [place] Lisa, TOOLMAKER GRADE THREE TOOLMAKER GRADE THREE Ky KirkRN RN Phuong PalaciosRN RN nn1 The chart was reviewed and I authenticate all verbal orders and agree with the evaluation and treatment provided.Corrections: (The following items were deleted from the chart) 18:26 18:03 DUPLEX SCAN LIMITED (DOPPLER) ordered. EDMS EDMS Attachments: 17:05 [facility] Payment Agreement zo MTDD
--- NOTE | 2016-04-22 19:11 | EDDOCDS ---
Nurse's Notes [facility] Name: Polly Mercado Age: 26 yrs Sex: Female : 1990 Arrival Date: 04/22/2016 Time: 15:09 Bed 7 Private MD: LESLI Escobar Diagnosis: Threatened Presentation: 04/22 15:13 Presenting complaint: Patient states: Patient thinks she is 6 weeks and called [facility] ob and was informed to wait a little bit but if persistent to come in to ER. Risk factors: the patient reports no vaginal bleeding. Adult Sepsis Screening: The patient does not have new or worsening altered mentation. Patient's respiratory rate is less than 22. Systolic blood pressure is greater than 100. Patient has a qSOFA score of 0- Negative Sepsis Screen. Suicide/Homicide risk assessment- the patient denies having any suicidal and/or homicidal ideations and does not present with any other emotional, behavioral or mental health complaints. Status: The patient is a dependent. Transition of care: patient was not received from another setting of care. 15:13 Acuity: ALIZE Level 3 [facility] 15:13 Method Of Arrival: Walkin/Carried/Asstd [facility] Triage Assessment: 15:15 General: Appears in no apparent distress. Pain: Location: abdomen Pain currently is 5 jmb out of 10 on a pain scale. HIV screening NA for this visit Offered previously. Neurological: Level of Consciousness is awake, alert, obeys commands, Oriented to person, place, time, Speech is normal, Facial symmetry appears normal, Facial symmetry: tongue is midline. Respiratory: Airway is patent Respiratory effort is even, unlabored, Respiratory pattern is regular, symmetrical. GI: Abdomen is obese. Derm: Skin is normal. Musculoskeletal: Range of motion intact in all extremities. 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 Vitamin Oral tab 1 tab once daily - PMHx: Seasonal Allergies; - PSHx: ; Orthopedic Surgery; intrauterine repair; - Social history: Smoking status: Patient states was never smoker of tobacco. No barriers to communication noted, The patient speaks fluent Albanian, Speaks appropriately for age. - Family history: Not pertinent. - : The pt / caregiver states he / she is not on anticoagulants. Home medication list is obtained from the patient. - Exposure Risk Screening:: None identified. Screenin:07 Screening information is obtained from the patient. Fall risk: No risks identified. ck1 Assistance ADL's: requires no assistance with activities of daily living. Abuse/DV Screen: The patient / caregiver reports he/she is: not in a situation that causes fear, pain or injury. Nutritional screening: No deficits noted. Advance Directives: Currently, there is no health care proxy. home support is adequate. Assessment: 16:10 General: Appears in no apparent distress, Behavior is appropriate for age, cooperative. rs3 Pain: Location: abdomen. Respiratory: Airway is patent Respiratory effort is even, unlabored. GI: Abdomen is non- distended Bowel sounds present X 4 quads. Abd is soft X 4 quads. Derm: Skin is pink, warm & dry. 17:10 General: Appears in no apparent distress, comfortable, Behavior is appropriate for age, ck1 cooperative. Pain: Location: abdomen. Pain: Quality of pain is described as crampy. Neurological: Level of Consciousness is awake, alert, obeys commands, Oriented to person, place, time. Cardiovascular: No deficits noted. Respiratory: Respiratory effort is unlabored, Respiratory pattern is regular, symmetrical. GI: No deficits noted. Derm: Skin is pink, warm & dry. Musculoskeletal: No deficits noted. 18:32 General: Appears in no apparent distress, comfortable, Behavior is appropriate for age, ck1 cooperative. Pain: Denies pain. Neurological: Level of Consciousness is awake, alert, obeys commands, Oriented to person, place, time. Cardiovascular: No deficits noted. Respiratory: Respiratory effort is unlabored, Respiratory pattern is regular, symmetrical. : Denies vaginal bleeding. Derm: Skin is pink, warm & dry. 19:10 General: Appears in no apparent distress, comfortable, Behavior is appropriate for age, nn1 cooperative. Pain: Location: abdomen Pain currently is 2 out of 10 on a pain scale. Neurological: Level of Consciousness is awake, alert. Respiratory: Airway is patent Respiratory effort is even, unlabored. Derm: Skin is pink, warm & dry. Vital Signs: 15:11 BP 137 / 67; Pulse 85; Resp 18; Temp 98.9; Pulse Ox 99% on R/A; Weight 104.33 kg; elp Height 5 ft. 5 in. (165.10 cm); Pain 5/10; 18:32 BP 120 / 67; Pulse 103; Resp 18; Temp 98.5(O); Pulse Ox 95% on R/A; Pain 0/10; ck1 19:10 BP 137 / 70; Pulse 87; Resp 18; Temp 100; Pulse Ox 97% on R/A; Pain 2/10; nn1 15:11 Body Mass Index 38.27 (104.33 kg, 165.10 cm) elp Vitals: 15:11 Log In Time: April 22, 2016 at 15:09. elp ED Course: 15:10 Patient visited by Leanne Black PCA. elp 15:10 Shawn [facility] is Private Physician. elp 15:10 Patient moved to Waiting elp 15:12 Patient visited by Leanne Black PCA. elp 15:12 Patient moved to Pre RCE elp 15:14 Triage Initiated jmb 15:42 Coco Mohamud,RN is Primary Nurse. mlb1 15:42 Patient moved to 7 mlb1 15:48 Ria Mijares FNP is [facility]. le 16:06 Wet Prep Sent. ck1 16:06 GC & Chlamydia Amplification Sent. ck1 16:07 The patient / caregiver is instructed regarding the plan of care and ED course. ck1 16:07 Assist provider with pelvic exam: Set up pelvic tray. Specimens sent to lab. Performed ck1 by Ria BARKER Patient tolerated well. 16:07 No IV's were initiated during this patient's visit. ck1 16:09 Patient visited by Coco Mohamud RN. ck1 16:30 Patient visited by Ria Mijares FNP. le 16:30 Patient visited by Ria Mijares FNP. le 17:05 [facility] [place] Payment Agreement was scanned into [employer] and attached to record. zo 17:30 Patient visited by Coco Mohamud,GARETH. ck1 17:46 Patient visited by Coco Mohamud,RN. ck1 18:00 Patient visited by Coco Mohamud,GARETH. ck1 18:01 Patient moved to Ultrasound ck1 18:19 Patient moved to 7 ck1 18:32 Patient visited by Coco Mohamud RN. ck1 18:54 Patient visited by Coco Mohamud RN. ck1 18:54 Primary Nurse role handed off by Coco Mohamud RN ck1 18:57 [place], OB is Referral Physician. le Order Results: Lab Order: Type & Screen; SPEC04/22/16 15:54 Test: BLOOD TYPE; Value: A POS; Status: F Test: AB SCREEN (INDIRECT BHAVYA)GEL; Value: NEGATIVE; Status: F Lab Order: Hcg, Serum Quantitative; SPEC' 04/22/16 15:54 Test: HCG, SERUM QUANTITATIVE; Value: 25764; Units: MIU/ML; Status: F Test Note: ; GESTATIONAL AGE APPROXIMATE HCG RANGE (MIU/ML) 0.2-1 WEEK 5-50 1-2 WEEKS 50-500 2-3 WEEKS 100-5,000 3-4 WEEKS 500-10,000 4-5 WEEKS 1,000-50,000 5-6 WEEKS 10,000-100,000 6-8 WEEKS 15,000-200,000 2-3 MONTHS 10,000-100,000 NON FEMALES LESS THAN 3.0 Patient samples may contain human heterophilic antibodies that could react with immunoassays to give falsely elevated or depressed results. This assay has been designed to minimize interference from heterophilic antibodies. Elevated hCG levels have also been associated with trophoblastic disease and nontrophoblastic neoplasms. The possibility of having these diseases should be considered before a diagnosis of is made. This test is not intended for use as a surrogate marker for aiding in the diagnosis or monitoring the treatment of cancer patients. Siemens NEON Concierge methodology. Lab Order: CBC; SPEC'M 04/22/16 15:54 Test: WHITE BLOOD COUNT; Value: 7.4; Range: 4.0-10.0; Units: K/mm3; Status: F Test: RED BLOOD COUNT; Value: 4.62; Range: 4.00-5.40; Units: M/mm3; Status: F Test: HEMOGLOBIN; Value: 13.2; Range: 12.0-16.0; Units: g/dl; Status: F Test: HEMATOCRIT; Value: 39.2; Range: 36.0-47.0; Units: %; Status: F Test: MEAN CORPUSCULAR VOLUME; Value: 84.8; Range: 80.0-96.0; Units: fl; Status: F Test: MEAN CORPUSCULAR HEMOGLOBIN; Value: 28.6; Range: 27.0-33.0; Units: pg; Status: F Test: MEAN CORPUSCULAR HGB CONC; Value: 33.8; Range: 32.0-36.5; Units: g/dl; Status: F Test: RED CELL DISTRIBUTION WIDTH; Value: 14.1; Range: 11.5-14.5; Units: %; Status: F Test: PLATELET COUNT, AUTOMATED; Value: 325; Range: 150-450; Units: k/mm3; Status: F Lab Order: Wet Prep; SPEC'M 04/22/16 15:54 Test: WET PREP; Value: WET PREP RESULT; Status: F Test: WET PREP; Value: MANY EPITHELIAL CELLS PRESENT; Status: F Test: WET PREP; Value: MODERATE WBC; Status: F Test: WET PREP; Value: MANY LONG RODS PRESENT; Status: F Test: WET PREP; Value: MANY SHORT RODS PRESENT; Status: F Outcome: 18:21 Ultrasound Study completed. ck1 18:57 Discharge ordered by Provider. le 19:10 Discharge Assessment: Patient awake, alert and oriented x 3. No cognitive and/or nn1 functional deficits noted. Patient verbalized understanding of disposition instructions. patient administered narcotics - no. The following High Risk Discharge criteria are identified: None. Discharged to home ambulatory, with family. Condition: stable. Property :Personal belongings accompany Pt. 19:11 Patient left the ED. nn1 Signatures: Russell Woods RN RN mlb1 Coco MohamudRN RN ck1 [place] Lisa, COMB WINDER COMB WINDER Anel SosaRN RN rs3 Leanne Black, TRANSCRIBER TRANSCRIBER elKy Staton RN RN hPuong PalaciosRN RN nn1 Corrections: (The following items were deleted from the chart) 15:12 15:11 Pulse 85bpm; Resp 18bpm; Pulse Ox 99% RA; Temp 98.9F; 104.33 kg; Height 5 ft. 5 elp in.; BMI: 38.2; Pain 5/10; elp MTDD
--- NOTE | 2016-04-22 19:13 | REP ---
Clinical: Pelvic pain cramping positive test. Technique: Transabdominal and transvaginal first trimester obstetrical ultrasound with color Doppler evaluation of the fetus. Findings: Anteverted uterus measures 9.7 x 5.3 x 6.6 cm. Maternal ovaries are normal and a left corpus luteal cyst is identified. Early intrauterine identified including gestational sac, yolk sac and pole. CRL of 7 mm corresponds to 6 weeks 4 days gestational age with estimated date of delivery 12/12/2016. heart rate equals 116 beats per minute. A small subchorionic hemorrhage is identified to the right of the gestational sac measuring 16 x 12 x 5 mm. Impression: Single live early intrauterine at 6 weeks 4 days gestational age. Complete anatomical assessment should be performed at 19-20 weeks. Small subchorionic hemorrhage noted. Signed by Roger Perry MD 04/22/2016 07:05 P
--- NOTE | 2016-04-24 20:12 | EDDOCDS ---
Physician Documentation [facility] Name: Polly Mercado Age: 26 yrs Sex: Female : 1990 Arrival Date: 04/22/2016 Time: 15:09 Bed 7 Private MD: [place] [facility] [place]: 04/22 19:00 Critical Care: Critical care not applicable. le Disposition: 04/22/16 18:57 Discharged to Home/Self Care. Impression: Threatened . - Condition is Stable. - Discharge Instructions: Threatened Miscarriage, Pelvic Rest. - Medication Reconciliation, Local Pharmacy Hours form. - Follow up: Radha Colon, OB; When: Call to arrange an appointment; Reason: Recheck today's complaints, Continuance of care. - Problem is new. - Symptoms are unchanged. - Notes: Your sonogram reveals a subchorionic hemorrhage, this needs to be followed by your stallion keeper Return to the ED for severe abdominal pain, heavy vaginal bleeding, fever or any other concerns Historical: - Allergies: Latex; - Home Meds: 1. Vitamin Oral tab 1 tab once daily - PMHx: Seasonal Allergies; - PSHx: ; Orthopedic Surgery; intrauterine repair; - Social history: Smoking status: Patient states was never smoker of tobacco. No barriers to communication noted, The patient speaks fluent Indonesian, Speaks appropriately for age. - Family history: Not pertinent. - : The pt / caregiver states he / she is not on anticoagulants. Home medication list is obtained from the patient. - Exposure Risk Screening:: None identified. SUPERVISOR GLYCERIN: 15:15 LMP N/A - patient is unsure when last menses was jmb Vital Signs: 15:11 BP 137 / 67; Pulse 85; Resp 18; Temp 98.9; Pulse Ox 99% on R/A; Weight 104.33 kg / elp 230.01 lbs; Height 5 ft. 5 in. (165.10 cm); Pain 5/10; 18:32 BP 120 / 67; Pulse 103; Resp 18; Temp 98.5(O); Pulse Ox 95% on R/A; Pain 0/10; ck1 19:10 BP 137 / 70; Pulse 87; Resp 18; Temp 100; Pulse Ox 97% on R/A; Pain 2/10; nn1 15:11 Body Mass Index 38.27 (104.33 kg, 165.10 cm) elp MDM: 15:32 Hcg, Serum Quantitative Ordered. EDMS 15:32 CBC Ordered. EDMS 15:32 Type & Screen Ordered. EDMS 15:50 Set up pelvic ordered. le 15:50 Wet Prep Ordered. EDMS 15:50 GC & Chlamydia Amplification Ordered. EDMS 16:34 US 1st trimester Ordered. EDMS 17:04 Hcg, Serum Quantitative Reviewed. le 17:04 Type & Screen Reviewed. le 17:04 CBC Reviewed. le 17:04 Wet Prep Reviewed. le 17:04 Financial registration complete. zo 17:05 [facility] Payment Agreement was scanned into [employer] and attached to record. zo 18:03 TRANSVAGINAL US Ordered. EDMS 22:00 T-Sheet-- Draft Copy was scanned into [employer] and attached to record. klr Signatures: Dispatcher [facility] Coco MohamudRN RN ck1 [place] Lisa, LITIGATION MANAGER LITIGATION MANAGER Ky Kirk RN RN Phuong PalaciosRN RN nn1 Saundra Wader The chart was reviewed and I authenticate all verbal orders and agree with the evaluation and treatment provided.Corrections: (The following items were deleted from the chart) 18:26 18:03 DUPLEX SCAN LIMITED (DOPPLER) ordered. EDMS EDMS Attachments: 17:05 [facility] Payment Agreement zo 22:00 T-Sheet-- Draft Copy klr Chart Complete MTDD
--- NOTE | 2016-04-24 20:12 | EDDOCDS ---
Nurse's Notes [facility] Name: Polly Mercado Age: 26 yrs Sex: Female : 1990 Arrival Date: 04/22/2016 Time: 15:09 Bed 7 Private MD: LESLI Escobar Diagnosis: Threatened Presentation: 04/22 15:13 Presenting complaint: Patient states: Patient thinks she is 6 weeks and called [facility] ob and was informed to wait a little bit but if persistent to come in to ER. Risk factors: the patient reports no vaginal bleeding. Adult Sepsis Screening: The patient does not have new or worsening altered mentation. Patient's respiratory rate is less than 22. Systolic blood pressure is greater than 100. Patient has a qSOFA score of 0- Negative Sepsis Screen. Suicide/Homicide risk assessment- the patient denies having any suicidal and/or homicidal ideations and does not present with any other emotional, behavioral or mental health complaints. Status: The patient is a dependent. Transition of care: patient was not received from another setting of care. 15:13 Acuity: ALIZE Level 3 [facility] 15:13 Method Of Arrival: Walkin/Carried/Asstd [facility] Triage Assessment: 15:15 General: Appears in no apparent distress. Pain: Location: abdomen Pain currently is 5 jmb out of 10 on a pain scale. HIV screening NA for this visit Offered previously. Neurological: Level of Consciousness is awake, alert, obeys commands, Oriented to person, place, time, Speech is normal, Facial symmetry appears normal, Facial symmetry: tongue is midline. Respiratory: Airway is patent Respiratory effort is even, unlabored, Respiratory pattern is regular, symmetrical. GI: Abdomen is obese. Derm: Skin is normal. Musculoskeletal: Range of motion intact in all extremities. CORPORATE WELLNESS COORDINATOR: 15:15 LMP N/A - patient is unsure when last menses was jmb Historical: - Allergies: Latex; - Home Meds: 1. Vitamin Oral tab 1 tab once daily - PMHx: Seasonal Allergies; - PSHx: ; Orthopedic Surgery; intrauterine repair; - Social history: Smoking status: Patient states was never smoker of tobacco. No barriers to communication noted, The patient speaks fluent Maori, Speaks appropriately for age. - Family history: Not pertinent. - : The pt / caregiver states he / she is not on anticoagulants. Home medication list is obtained from the patient. - Exposure Risk Screening:: None identified. Screenin:07 Screening information is obtained from the patient. Fall risk: No risks identified. ck1 Assistance ADL's: requires no assistance with activities of daily living. Abuse/DV Screen: The patient / caregiver reports he/she is: not in a situation that causes fear, pain or injury. Nutritional screening: No deficits noted. Advance Directives: Currently, there is no health care proxy. home support is adequate. Assessment: 16:10 General: Appears in no apparent distress, Behavior is appropriate for age, cooperative. rs3 Pain: Location: abdomen. Respiratory: Airway is patent Respiratory effort is even, unlabored. GI: Abdomen is non- distended Bowel sounds present X 4 quads. Abd is soft X 4 quads. Derm: Skin is pink, warm & dry. 17:10 General: Appears in no apparent distress, comfortable, Behavior is appropriate for age, ck1 cooperative. Pain: Location: abdomen. Pain: Quality of pain is described as crampy. Neurological: Level of Consciousness is awake, alert, obeys commands, Oriented to person, place, time. Cardiovascular: No deficits noted. Respiratory: Respiratory effort is unlabored, Respiratory pattern is regular, symmetrical. GI: No deficits noted. Derm: Skin is pink, warm & dry. Musculoskeletal: No deficits noted. 18:32 General: Appears in no apparent distress, comfortable, Behavior is appropriate for age, ck1 cooperative. Pain: Denies pain. Neurological: Level of Consciousness is awake, alert, obeys commands, Oriented to person, place, time. Cardiovascular: No deficits noted. Respiratory: Respiratory effort is unlabored, Respiratory pattern is regular, symmetrical. : Denies vaginal bleeding. Derm: Skin is pink, warm & dry. 19:10 General: Appears in no apparent distress, comfortable, Behavior is appropriate for age, nn1 cooperative. Pain: Location: abdomen Pain currently is 2 out of 10 on a pain scale. Neurological: Level of Consciousness is awake, alert. Respiratory: Airway is patent Respiratory effort is even, unlabored. Derm: Skin is pink, warm & dry. Vital Signs: 15:11 BP 137 / 67; Pulse 85; Resp 18; Temp 98.9; Pulse Ox 99% on R/A; Weight 104.33 kg; elp Height 5 ft. 5 in. (165.10 cm); Pain 5/10; 18:32 BP 120 / 67; Pulse 103; Resp 18; Temp 98.5(O); Pulse Ox 95% on R/A; Pain 0/10; ck1 19:10 BP 137 / 70; Pulse 87; Resp 18; Temp 100; Pulse Ox 97% on R/A; Pain 2/10; nn1 15:11 Body Mass Index 38.27 (104.33 kg, 165.10 cm) elp Vitals: 15:11 Log In Time: April 22, 2016 at 15:09. elp ED Course: 15:10 Patient visited by Leanne Black PCA. elp 15:10 Shawn [facility] is Private Physician. elp 15:10 Patient moved to Waiting elp 15:12 Patient visited by Leanne Black PCA. elp 15:12 Patient moved to Pre RCE elp 15:14 Triage Initiated jmb 15:42 Coco Mohamud,RN is Primary Nurse. mlb1 15:42 Patient moved to 7 mlb1 15:48 Ria Mijares FNP is [facility]. le 16:06 Wet Prep Sent. ck1 16:06 GC & Chlamydia Amplification Sent. ck1 16:07 The patient / caregiver is instructed regarding the plan of care and ED course. ck1 16:07 Assist provider with pelvic exam: Set up pelvic tray. Specimens sent to lab. Performed ck1 by Ria BARKER Patient tolerated well. 16:07 No IV's were initiated during this patient's visit. ck1 16:09 Patient visited by Coco Mohamud RN. ck1 16:30 Patient visited by Ria Mijares FNP. le 16:30 Patient visited by Ria Mijares FNP. le 17:05 [facility] Payment Agreement was scanned into [employer] and attached to record. zo 17:30 Patient visited by Coco Mohamud,GARETH. ck1 17:46 Patient visited by Coco Mohamud,RN. ck1 18:00 Patient visited by Coco Mohamud,GARETH. ck1 18:01 Patient moved to Ultrasound ck1 18:19 Patient moved to 7 ck1 18:32 Patient visited by Coco Mohamud RN. ck1 18:54 Patient visited by Coco Mohamud RN. ck1 18:54 Primary Nurse role handed off by Coco Mohamud RN ck1 18:57 [place], OB is Referral Physician. le 19:54 US 1st trimester Returned. EDMS 22:00 T-Sheet-- Draft Copy was scanned into [employer] and attached to record. klr Order Results: Lab Order: Type & Screen; [facility] 04/22/16 15:54 Test: BLOOD TYPE; Value: A POS; Status: F Test: AB SCREEN (INDIRECT BHAVYA)GEL; Value: NEGATIVE; Status: F Lab Order: Hcg, Serum Quantitative; [facility] 04/22/16 15:54 Test: HCG, SERUM QUANTITATIVE; Value: [id number]; Units: MIU/ML; Status: F Test Note: ; GESTATIONAL AGE APPROXIMATE HCG RANGE (MIU/ML) 0.2-1 WEEK 5-50 1-2 WEEKS 50-500 2-3 WEEKS 100-5,000 3-4 WEEKS 500-10,000 4-5 WEEKS 1,000-50,000 5-6 WEEKS 10,000-100,000 6-8 WEEKS 15,000-200,000 2-3 MONTHS 10,000-100,000 NON FEMALES LESS THAN 3.0 Patient samples may contain human heterophilic antibodies that could react with immunoassays to give falsely elevated or depressed results. This assay has been designed to minimize interference from heterophilic antibodies. Elevated hCG levels have also been associated with trophoblastic disease and nontrophoblastic neoplasms. The possibility of having these diseases should be considered before a diagnosis of is made. This test is not intended for use as a surrogate marker for aiding in the diagnosis or monitoring the treatment of cancer patients. Siemens NORCAT methodology. Lab Order: CBC; [facility] 04/22/16 15:54 Test: WHITE BLOOD COUNT; Value: 7.4; Range: 4.0-10.0; Units: K/mm3; Status: F Test: RED BLOOD COUNT; Value: 4.62; Range: 4.00-5.40; Units: M/mm3; Status: F Test: HEMOGLOBIN; Value: 13.2; Range: 12.0-16.0; Units: g/dl; Status: F Test: HEMATOCRIT; Value: 39.2; Range: 36.0-47.0; Units: %; Status: F Test: MEAN CORPUSCULAR VOLUME; Value: 84.8; Range: 80.0-96.0; Units: fl; Status: F Test: MEAN CORPUSCULAR HEMOGLOBIN; Value: 28.6; Range: 27.0-33.0; Units: pg; Status: F Test: MEAN CORPUSCULAR HGB CONC; Value: 33.8; Range: 32.0-36.5; Units: g/dl; Status: F Test: RED CELL DISTRIBUTION WIDTH; Value: 14.1; Range: 11.5-14.5; Units: %; Status: F Test: PLATELET COUNT, AUTOMATED; Value: 325; Range: 150-450; Units: k/mm3; Status: F Lab Order: Wet Prep; SPEC'M 04/22/16 15:54 Test: WET PREP; Value: WET PREP RESULT; Status: F Test: WET PREP; Value: MANY EPITHELIAL CELLS PRESENT; Status: F Test: WET PREP; Value: MODERATE WBC; Status: F Test: WET PREP; Value: MANY LONG RODS PRESENT; Status: F Test: WET PREP; Value: MANY SHORT RODS PRESENT; Status: F Lab Order: GC & Chlamydia Amplification; SPEC'M 04/22/16 15:54 Test: CHLAMYDIA DNA AMPLIFICATION; Value: NEGATIVE; Range: NEGATIVE; Status: F Test: GC DNA AMPLIFICATION; Value: NEGATIVE; Range: NEGATIVE; Status: F Radiology Order: US 1st trimester Test: US 1st trimester REASON FOR EXAMINATION: pelvic cramping; Clinical: Pelvic pain cramping positive test.; ; Technique: Transabdominal and transvaginal first trimester obstetrical; ultrasound with color Doppler evaluation of the fetus.; ; Findings:; Anteverted uterus measures 9.7 x 5.3 x 6.6 cm. Maternal ovaries are normal and a; left corpus luteal cyst is identified. Early intrauterine identified; including gestational sac, yolk sac and pole. CRL of 7 mm corresponds to 6; weeks 4 days gestational age with estimated date of delivery 12/12/2016. ; heart rate equals 116 beats per minute. A small subchorionic hemorrhage is; identified to the right of the gestational sac measuring 16 x 12 x 5 mm.; ; Impression:; Single live early intrauterine at 6 weeks 4 days gestational age.; Complete anatomical assessment should be performed at 19-20 weeks. Small; subchorionic hemorrhage noted.; ; ; Signed by; Roger Perry MD 04/22/2016 07:05 P; Outcome: 18:21 Ultrasound Study completed. ck1 18:57 Discharge ordered by Provider. le 19:10 Discharge Assessment: Patient awake, alert and oriented x 3. No cognitive and/or nn1 functional deficits noted. Patient verbalized understanding of disposition instructions. patient administered narcotics - no. The following High Risk Discharge criteria are identified: None. Discharged to home ambulatory, with family. Condition: stable. Property :Personal belongings accompany Pt. 19:11 Patient left the ED. nn1 Signatures: Dispatcher [employer] EDRussell Herron RN RN mlb1 Coco MohamudRN RN ck1 [place] Lisa, STUDENT LIFE VICE PRESIDENT STUDENT LIFE VICE PRESIDENT Anel SosaRN RN rs3 Leanne Black, PANAMA HAT SMEARER PANAMA HAT SMEARER elp Ky StewardRN Phuong OneillRN RN nn1 Saundra Wade Corrections: (The following items were deleted from the chart) 15:12 15:11 Pulse 85bpm; Resp 18bpm; Pulse Ox 99% RA; Temp 98.9F; 104.33 kg; Height 5 ft. 5 elp in.; BMI: 38.2; Pain 5/10; elp Chart Complete MTDD
--- NOTE | 2016-04-24 20:12 | EDDOCDS ---
Physician Documentation [facility] Name: Polly Mercado Age: 26 yrs Sex: Female : 1990 Arrival Date: 04/22/2016 Time: 15:09 Bed 7 Private MD: [place] [facility]: 04/22 19:00 Critical Care: Critical care not applicable. le Disposition: 04/22/16 18:57 Discharged to Home/Self Care. Impression: Threatened . - Condition is Stable. - Discharge Instructions: Threatened Miscarriage, Pelvic Rest. - Medication Reconciliation, Local Pharmacy Hours form. - Follow up: Radha Colon, OB; When: Call to arrange an appointment; Reason: Recheck today's complaints, Continuance of care. - Problem is new. - Symptoms are unchanged. - Notes: Your sonogram reveals a subchorionic hemorrhage, this needs to be followed by your paint preparer Return to the ED for severe abdominal pain, heavy vaginal bleeding, fever or any other concerns Historical: - Allergies: Latex; - Home Meds: 1. Vitamin Oral tab 1 tab once daily - PMHx: Seasonal Allergies; - PSHx: ; Orthopedic Surgery; intrauterine repair; - Social history: Smoking status: Patient states was never smoker of tobacco. No barriers to communication noted, The patient speaks fluent Maori, Speaks appropriately for age. - Family history: Not pertinent. - : The pt / caregiver states he / she is not on anticoagulants. Home medication list is obtained from the patient. - Exposure Risk Screening:: None identified. STOCK DEALER: 15:15 LMP N/A - patient is unsure when last menses was jmb Vital Signs: 15:11 BP 137 / 67; Pulse 85; Resp 18; Temp 98.9; Pulse Ox 99% on R/A; Weight 104.33 kg / elp 230.01 lbs; Height 5 ft. 5 in. (165.10 cm); Pain 5/10; 18:32 BP 120 / 67; Pulse 103; Resp 18; Temp 98.5(O); Pulse Ox 95% on R/A; Pain 0/10; ck1 19:10 BP 137 / 70; Pulse 87; Resp 18; Temp 100; Pulse Ox 97% on R/A; Pain 2/10; nn1 15:11 Body Mass Index 38.27 (104.33 kg, 165.10 cm) elp MDM: 15:32 Hcg, Serum Quantitative Ordered. EDMS 15:32 CBC Ordered. EDMS 15:32 Type & Screen Ordered. EDMS 15:50 Set up pelvic ordered. le 15:50 Wet Prep Ordered. EDMS 15:50 GC & Chlamydia Amplification Ordered. EDMS 16:34 US 1st trimester Ordered. EDMS 17:04 Hcg, Serum Quantitative Reviewed. le 17:04 Type & Screen Reviewed. le 17:04 CBC Reviewed. le 17:04 Wet Prep Reviewed. le 17:04 Financial registration complete. zo 17:05 [facility] Payment Agreement was scanned into [employer] and attached to record. zo 18:03 TRANSVAGINAL US Ordered. EDMS 22:00 T-Sheet-- Draft Copy was scanned into [employer] and attached to record. klr Signatures: Dispatcher [facility] EDNY Coco MohamudRN RN ck1 [place] Lisa, CERTIFIED SURGICAL TECHNICIAN CERTIFIED SURGICAL TECHNICIAN Ky Kirk RN RN Phuong PalaciosRN RN nn1 Saundra Wader The chart was reviewed and I authenticate all verbal orders and agree with the evaluation and treatment provided.Corrections: (The following items were deleted from the chart) 18:26 18:03 DUPLEX SCAN LIMITED (DOPPLER) ordered. EDMS EDMS Attachments: 17:05 [facility] Payment Agreement zo 22:00 T-Sheet-- Draft Copy klr Chart Complete MTDD
== END 2016-04-22 19:11 | disposition home or self-care (01) ==
LOC: M ED 15:09
DX: O20.0 Threatened abortion (principal); O36.8910 Maternal care for other specified fetal problems, first trimester, not applicable or unspecified; O99.511 Diseases of the respiratory system complicating pregnancy, first trimester; J45.909 Unspecified asthma, uncomplicated; Z79.899 Other long term (current) drug therapy; Z91.040 Latex allergy status; Z3A.01 Less than 8 weeks gestation of pregnancy

== ENCOUNTER 2016-07-06 20:03 | Emergency (ER) | payer OTHER ==
[~2016-07-06] VITALS: Ht 167.6 cm; Wt 104.3 kg
[2016-07-06] MEDS ORDERED: ACETAMINOPHEN 325 MG TAB PO ONE (21:00)
[2016-07-06 21:24] LABS: BASO % 0.5 % (0.0-1.0); EOS # 0.1 K/mm3 (0.0-0.50); EOS % 0.7 % (0.0-3.0); LARGE UNSTAINED CELL # 0.1 K/mm3 (0.0-0.4); LARGE UNSTAINED CELL % 1.3 % (0.0-4.0); LYMPH # 1.8 K/mm3 (1.5-6.5); LYMPH % 20.4 % (24.0-44.0); MEAN CORPUSCULAR HEMOGLOBIN 28.5 pg (27.0-33.0); MEAN CORPUSCULAR HGB CONC 33.8 g/dl (32.0-36.5); MEAN CORPUSCULAR VOLUME 84.3 fl (80.0-96.0); MONO # 0.4 K/mm3 (0.0-0.8); MONO % 4.5 % (0.0-5.0); NEUTROPHILS # 6.1 K/mm3 (1.8-7.7); NEUTROPHILS % 72.6 % (36.0-66.0); PLATELET COUNT, AUTOMATED 298 k/mm3 (150-450); RED CELL DISTRIBUTION WIDTH 13.5 % (11.5-14.5); WHITE BLOOD COUNT 8.4 K/mm3 (4.0-10.0)
--- NOTE | 2016-07-06 21:50 | REPUSA ---
Clinical statement: Pain. Findings: The liver demonstrates uniform echotexture and echogenicity, with no mass lesions. The gall bladder is contracted but otherwise unremarkable. The common bile duct measures 2 mm and is within no rmal limits. The pancreas demonstrates normal contour and appearance. The spleen is unremarkable. The right kidney measures 12.5 cm in length and the left kidney measures 13.8 cm in length. There is no evidence of hydronephrosis or nephrolithiasis. The visualized portions of the aorta and inferior vena cava are within normal limits. No ascites are seen. Impression: Unremarkable ultrasound examination of the abdomen.
[2016-07-06 21:52] LABS: ALBUMIN/GLOBULIN RATIO 0.91 (1.00-1.93); ALKALINE PHOSPHATASE 63 U/L (45-117); ALT/SGPT 14 U/L (12-78); AMYLASE 38 U/L (25-115); ANION GAP 11 MEQ/L (8-16); AST/SGOT 9 U/L (15-37); BILIRUBIN,DIRECT < 0.1 MG/DL (0.0-0.2); BILIRUBIN,TOTAL 0.1 MG/DL (0.2-1.0); BLOOD UREA NITROGEN 6 MG/DL (7-18); CALCIUM LEVEL 8.4 MG/DL (8.5-10.1); CARBON DIOXIDE LEVEL 22 MEQ/L (21-32); CHLORIDE LEVEL 108 MEQ/L (98-107); CREATININE FOR GFR 0.44 MG/DL (0.55-1.02); GLOMERULAR FILTRATION RATE > 60.0 (>60); GLUCOSE, FASTING 139 MG/DL (70-105); POTASSIUM SERUM 3.4 MEQ/L (3.5-5.1); SODIUM LEVEL 141 MEQ/L (136-145); TOTAL PROTEIN 6.3 GM/DL (6.4-8.2)
[2016-07-06 22:16] VITALS: BP 143/56
== END 2016-07-06 22:43 | disposition home or self-care (01) ==
LOC: M ED 22:32
DX: O26.892 Other specified pregnancy related conditions, second trimester (principal); R10.12 Left upper quadrant pain; R10.13 Epigastric pain; Z91.040 Latex allergy status; Z3A.17 17 weeks gestation of pregnancy

== ENCOUNTER 2016-08-15 08:34 | Outpatient (CLI) | payer OTHER ==
[~2016-08-15] VITALS: Ht 167.6 cm; Wt 105.0 kg
[2016-08-15] MEDS ORDERED: TUMS500C PO (08:49)
[2016-08-15] MEDS ORDERED: ACET50TA PO (08:49)
[2016-08-15 08:51] VITALS: BP 147/78
[2016-08-15 08:59] VITALS: BP 147/78
[2016-08-15 09:09] LABS: MEAN CORPUSCULAR HGB CONC 34.8 g/dl (32.0-36.5); MEAN CORPUSCULAR VOLUME 89.1 fl (80.0-96.0); RED CELL DISTRIBUTION WIDTH 13.6 % (11.5-14.5)
[2016-08-15 10:17] VITALS: BP 122/64
--- NOTE | 2016-08-15 12:42 | HPE ---
DATE OF ADMISSION: 08/15/2016 This lady is a 26-year-old, 4, para 3, last menstrual period (LMP) 03/12/2016, estimated date of confinement (EDC) of 12/17/2016, at 22 weeks of gestation. She fell on her right hip. No loss of fluid and no contractions. Her risk factors is that she has had three previous sections. She is presently breast-feeding her 2-year-old, and she has a history of intractable bacterial vaginosis (BV). Her past history is in September of 2009, 39 weeks, section, 9 pounds 14 ounces. September 2010, 39 weeks, section, 8 pounds 13 ounces and had a uterine repair. She had a final section February 2015 at 39 weeks, 9 pounds 2 ounces, apparently uterus was intact. On examination, she is in no distress. She is busy on her phone. There is a heart present. She is not complaining of anything. She just points out that her fall was on her right knee. movements are present. No vaginal loss or bleeding. Her Betke-Kleihauer was negative. She had has no other symptoms. Her CBC is normal at 12.0, hematocrit 34.5 and platelets 278. Her urine is 1.020, pH 5, negative except for trace for protein. She is A+, HIV negative, hepatitis negative, RPR negative, rubella immune. Varicella immune. Pap: Ascus. Urine is negative. Gonorrhea and chlamydia are negative. She did have a early 1-hour glucose, which was 162. She had a 3-hour glucose 85, 169, 154 and 98. In summary, we have a lady who fell on her right hip with no consequence. No loss of consciousness. No loss of fluid. No contractions. She has a followup 08/25/2016. We discussed using Flagyl while breast-feeding, and she was discharged undelivered to be followed up in the office. The rest of the examination was unremarkable. She was normocephalic, atraumatic. Neck full range of motion. Pupils equal and reactive to light. She responded to all questions. She had no wheezes or rhonchi. Chest was clear to bases. Symphysis fundus height was appropriate. No rashes, lesions or pruritus. She has no arthralgia, myalgia. No complaint of cough, wheeze, shortness of breath or dyspnea on exertion. No chest pain. Not bleeding. Neuro complete. No incontinence. No nausea, vomiting, diarrhea or constipation. The only diabetic issue she had was one elevated 1-hour glucose. She does have an elevated body mass index (BMI). Presently breast-feeding. She has no gyne history. Past surgery: Three sections with the uterine repair. Does not smoke or drink or abuse drugs, and there is no domestic violence. In summary, we have a 22-weeker who had a fall, resolved and was discharged in good condition.
== END 2016-08-15 12:00 | disposition home or self-care (01) ==
LOC: M LDO 08:34
PROVIDERS: ATTEND Obstetrics & Gynecology
DX: O99.89 Other specified diseases and conditions complicating pregnancy, childbirth and the puerperium (principal); Z3A.22 22 weeks gestation of pregnancy; M25.551 Pain in right hip; W10.9XXA Fall (on) (from) unspecified stairs and steps, initial encounter; Y93.9 Activity, unspecified; Y99.8 Other external cause status; X58.XXXA Exposure to other specified factors, initial encounter

== ENCOUNTER 2016-10-29 19:23 | Outpatient (CLI) | payer OTHER ==
[~2016-10-29] VITALS: Ht 167.6 cm; Wt 110.0 kg
[~2016-10-29 19:23] MED LIST: ACET50TA PO; TUMS500C PO
[2016-10-29 19:38] VITALS: BP 133/72
[2016-10-29] MEDS ORDERED: DOCUSATE SODIUM 100 MG CAP PO PRN (20:30)
[2016-10-29] MEDS ORDERED: MORPHINE 2 MG/ML 1ML SYRINGE IV PRN (20:30)
[2016-10-29] MEDS ORDERED: ONDANSETRON 4MG/2ML VIAL (J2405) IV PRN (20:30)
[2016-10-29] MEDS: ACETAMINOPHEN 500 MG TAB PO PRN (20:48)
[2016-10-29] MEDS: LR 1,000 ML IV SCH (20:58)
[2016-10-29 21:02] VITALS: BP 129/58
[2016-10-29 21:14] LABS: MEAN CORPUSCULAR HGB CONC 33.7 g/dl (32.0-36.5); MEAN CORPUSCULAR VOLUME 83.1 fl (80.0-96.0); RED CELL DISTRIBUTION WIDTH 14.7 % (11.5-14.5); WHITE BLOOD COUNT 8.8 K/mm3 (4.0-10.0)
[2016-10-29 22:30] VITALS: BP 121/56
--- NOTE | 2016-10-29 22:50 | REPUSA ---
OBSTETRICAL ULTRASOUND INDICATION: sharp abdominal pain. FINDINGS: A single live intrauterine gestation was identified with a heart rate of 149 bpm. The amniotic fluid index was normal measuring 9.8 cm. The placenta was posterior, without evidence of pl acenta previa. The fetus was in a cephalic lie. The cervix measures 4.5 cm in length and is closed. E stimated weight is 2526 g. Normal movement, breathing movements and tone are noted. The cranium and ventricles are unremarkable. Posterior fossa is within normal limits. The spine demonstrates normal contour and appearance. The orbits, facial anatomy, nasal anatomy, and lip s are normal in appearance. All 4 extremities appear grossly unremarkable. A four-chamber heart is ap preciated. The stomach, kidneys, bladder, and diaphragm are intact. A three-vessel umbilical co rd with normal cord insertion is appreciated. BIOMETRIC MEASUREMENTS BPD 8.9 cm HC 32.9 cm AC 29.4 cm FL 7.1 cm IMPRESSION: 1. Single live fetus based on today's measurements at 33 weeks 6 days, with an estimated due date of a 11/27/2016. 2. No abnormality detected on the survey.
[2016-10-30 00:07] VITALS: BP 119/57
[2016-10-30 02:21] VITALS: BP 114/52
[2016-10-30] MEDS: ACETAMINOPHEN 500 MG TAB PO PRN (04:02)
[2016-10-30 04:04] VITALS: BP 98/44
[2016-10-30 04:05] VITALS: BP 100/50
[2016-10-30] MEDS: LR 1,000 ML IV SCH (04:12)
[2016-10-30 06:18] VITALS: BP 123/59
== END 2016-10-30 07:11 | disposition home or self-care (01) ==
LOC: M LDO 19:23
PROVIDERS: ATTEND Student in an Organized Health Care Education/Training Program
DX: O99.89 Other specified diseases and conditions complicating pregnancy, childbirth and the puerperium (principal); R10.9 Unspecified abdominal pain; Z3A.33 33 weeks gestation of pregnancy; O34.219 Maternal care for unspecified type scar from previous cesarean delivery; O62.0 Primary inadequate contractions; O24.419 Gestational diabetes mellitus in pregnancy, unspecified control; O99.213 Obesity complicating pregnancy, third trimester; Z91.040 Latex allergy status
CPT/HCPCS: 59025; 76811; 76820; 85027; 86850; 86900; 86901; 96374; 96375; J2405

== ENCOUNTER 2016-11-04 16:07 | Outpatient (CLI) | payer OTHER ==
[~2016-11-04] VITALS: Ht 167.6 cm; Wt 110.0 kg
[2016-11-04 16:26] VITALS: BP 123/61
[2016-11-04] MEDS ORDERED: PRENTAB9 PO (17:15)
--- NOTE | 2016-11-05 13:25 | HPE ---
DATE OF ADMISSION: 11/04/2016 This lady is a 26-year-old 4, para 3, last period was 03/12/2016, estimated date of confinement (EDC) 12/17/2016, booked for repeat section 12/13/2016 at 33 weeks of gestation with a history of decreased movements. Risk factors are she has had three previous sections, elevated blood sugar, body mass index (BMI) is greater than 35, and she had a uterine perforation from an IUD. PAST HISTORY: In 2009 at 39 weeks, 9 pounds, 14 ounces male, section, failure to dilate. In 2010 at 39 weeks, 8 pounds, 13 ounces female, failed trial of labor after section (TOLAC), repeat section. In 2014 at 39 weeks, 9 pounds, 2 ounce elective repeat section. LABORATORY DATA: Today, her labs are A+, HIV negative, hepatitis negative, RPR negative, rubella immune. Varicella immune. Pap shows ascus. Urine is negative. Gonorrhea and chlamydia are negative. Her one-hour glucose was 162. Her three-hour glucose 85/169/154/98. Apparently, she did her blood sugars for one week and has not done them since. PHYSICAL EXAMINATION: On examination, no distress. Symphysis fundus height is 34. Scar on the lower abdomen, very protuberant abdomen. Category 1 strip with good accelerations 15 x 15 x 15 seconds. No decelerations. No contractions. Her blood pressure is 123/81, respirations 18, pulse 100, temperature 97.2. The rest of the examination: She is normocephalic, atraumatic. Neck: Full range of motion. Pupils equal and reactive to light. Distal pulses are symmetric. No evidence of deep vein thrombosis (DVT), pulmonary embolism (PE) or superficial phlebitis. Chest is clear bilaterally to bases. No wheezes or rhonchi. No costovertebral angle (CVA) tenderness. Symphysis fundus height is appropriate. Scar is noted and there are four quadrant bowel sounds. She has no rashes, lesions or pruritus. No arthralgia, myalgia. No complaints of cough, wheezes, shortness of breath or dyspnea on exertion. No palpitations. No chest pain. She is not bleeding. Neurologically complete. No incontinence, urgency, or frequency. No nausea, vomiting, diarrhea, or constipation. Diabetic issues as mentioned. GYNECOLOGY: Has ascus Pap. PAST SURGICAL HISTORY: Remarkable for three sections. SOCIAL HISTORY: She does not smoke, drink or abuse drugs. She is . There is no domestic violence. After evaluation of the nonstress test (NST) for about 45-50 minutes, our plan of management was discharge, appointment to keep on 11/13/2016, kick chart, and precautionary measures were reinforced and the patient was discharged undelivered.
== END 2016-11-04 17:02 | disposition home or self-care (01) ==
LOC: M LDO 16:07
PROVIDERS: ATTEND Obstetrics & Gynecology
DX: O36.8130 Decreased fetal movements, third trimester, not applicable or unspecified (principal); Z3A.33 33 weeks gestation of pregnancy; R87.610 Atypical squamous cells of undetermined significance on cytologic smear of cervix (ASC-US); O24.419 Gestational diabetes mellitus in pregnancy, unspecified control; O99.213 Obesity complicating pregnancy, third trimester; O34.219 Maternal care for unspecified type scar from previous cesarean delivery; Z91.040 Latex allergy status

== ENCOUNTER 2016-12-02 15:59 | Outpatient (CLI) | payer OTHER ==
[~2016-12-02] VITALS: Ht 167.6 cm; Wt 112.0 kg
[~2016-12-02 15:59] MED LIST changes: +PRENTAB9 PO
[2016-12-02 16:16] VITALS: BP 119/78
== END 2016-12-02 18:00 | disposition home or self-care (01) ==
LOC: M LDO 15:59
PROVIDERS: ATTEND Obstetrics & Gynecology
DX: O47.1 False labor at or after 37 completed weeks of gestation (principal); Z3A.37 37 weeks gestation of pregnancy; Z91.040 Latex allergy status

== ENCOUNTER 2016-12-13 07:04 | Inpatient (IN) | payer OTHER ==
[2016-12-13] VITALS (9 sets, daily range): BP systolic 108–129; BP diastolic 55–81
[~2016-12-13] VITALS: Ht 167.6 cm; Wt 114.0 kg
[~2016-12-13 07:04] MED LIST changes: +LACTATED RINGER'S 1000 ML IV ONE; +LR 1,000 ML IV SCH
[2016-12-13] MEDS ORDERED: ACET50TA PO (07:20)
[2016-12-13] MEDS ORDERED: BICITRA 30ML SOLN UDC PO ONE (07:30)
[2016-12-13 08:41] LABS: MEAN CORPUSCULAR HEMOGLOBIN 26.7 pg (27.0-33.0); MEAN CORPUSCULAR HGB CONC 33.1 g/dl (32.0-36.5); MEAN CORPUSCULAR VOLUME 80.4 fl (80.0-96.0); RED CELL DISTRIBUTION WIDTH 15.2 % (11.5-14.5); WHITE BLOOD COUNT 7.7 K/mm3 (4.0-10.0)
[2016-12-13] MEDS: DOCUSATE SODIUM 100 MG CAP PO SCH ×2 (09:00→20:35)
[2016-12-13] MEDS: PRENATAL VITAMINS CHEWABLE TABLET PO SCH (09:00)
[2016-12-13] MEDS ORDERED: MEASLES,MUMPS,RUBELLA VACCINE INJ (MMR-II) (90707) SC SCH (09:00)
[2016-12-13] MEDS ORDERED: RHOGAM 300 MCG (1500 IU) INJ (J2790) IM SCH (09:00)
[2016-12-13] MEDS ORDERED: OXYTOCIN INJ 10 UNITS/ML VIAL (J2590) As Ordered ONE (10:00)
[2016-12-13] MEDS ORDERED: ONDANSETRON 4MG/2ML VIAL (J2405) As Ordered ONE (10:00)
[2016-12-13] MEDS ORDERED: MORPHINE PRES-FREE INJ 10 MG/10 ML VIAL (J2274) As Ordered ONE (10:00)
[2016-12-13] MEDS ORDERED: METOCLOPRAMIDE INJ 10MG/2ML VIAL (J2765) IV PRN (10:16)
[2016-12-13] MEDS ORDERED: NALOXONE INJ 0.4 MG/1 ML VIAL (J2310) IV PRN ×2 (10:16)
[2016-12-13] MEDS ORDERED: NALBUPHINE HCL 10 MG/ML AMP (J2300) IV PRN ×2 (10:16→12:15)
[2016-12-13] MEDS ORDERED: ONDANSETRON 4MG/2ML VIAL (J2405) IV PRN ×2 (10:16→12:15)
[2016-12-13] MEDS ORDERED: PHENYLephrine HCL 500 MCG/5 ML (100MCG/ML) SYRINGE (J2370) As Ordered ONE ×3 (10:26→11:08)
[2016-12-13] MEDS: KETOROLAC 30 MG/ML VIAL (J1885) IV SCH ×3 (11:00→23:38)
[2016-12-13] MEDS ORDERED: KETOROLAC 60 MG/2 ML VIAL (J1885) As Ordered ONE (11:03)
[2016-12-13] MEDS ORDERED: METOCLOPRAMIDE INJ 10MG/2ML VIAL (J2765) As Ordered ONE (11:06)
[2016-12-13] MEDS: LR 1,000 ML IV SCH ×2 (12:00→20:35)
[2016-12-13] MEDS ORDERED: PROMETHAZINE 25 MG TAB PO PRN (12:00)
[2016-12-13] MEDS ORDERED: PERCOCET 5MG/325MG TAB PO PRN (12:00)
[2016-12-13] MEDS ORDERED: fentaNYL 100 MCG/2 ML INJECTION (J3010) IV PRN (12:15)
[2016-12-13] MEDS ORDERED: LR 1,000 ML IV SCH (12:15)
[2016-12-14 02:07] VITALS: BP 106/56
[2016-12-14] MEDS: LR 1,000 ML IV SCH ×2 (04:16→12:00)
[2016-12-14] MEDS: KETOROLAC 30 MG/ML VIAL (J1885) IV SCH (06:21)
[2016-12-14 06:24] VITALS: BP 115/56
[2016-12-14 07:21] LABS: MEAN CORPUSCULAR HEMOGLOBIN 26.4 pg (27.0-33.0); MEAN CORPUSCULAR HGB CONC 32.4 g/dl (32.0-36.5); MEAN CORPUSCULAR VOLUME 81.7 fl (80.0-96.0); RED CELL DISTRIBUTION WIDTH 15.3 % (11.5-14.5); WHITE BLOOD COUNT 7.9 K/mm3 (4.0-10.0)
[2016-12-14] MEDS: PRENATAL VITAMINS CHEWABLE TABLET PO SCH (08:04)
[2016-12-14] MEDS: DOCUSATE SODIUM 100 MG CAP PO SCH ×2 (08:04→21:02)
--- NOTE | 2016-12-14 08:13 | RO ---
DATE OF PROCEDURE: 12/13/2016 PREPROCEDURE DIAGNOSIS: Prior section times three. POSTPROCEDURE DIAGNOSIS: Prior section times three. PROCEDURE: SURGEON: Anthony Sheppard MD FUEL HANDLER: Lis Herron MD ANESTHESIA: Spinal. ESTIMATED BLOOD LOSS: 500 mL. DRAINS: Cody catheter with 75 mL of clear urine at the end of the procedure. FLUIDS REPLACED: 2500 mL total of lactated Ringers PREOPERATIVE ANTIBIOTICS: Ancef 2 grams. PROCEDURE: Elective repeat section via low transverse uterine incision. SPECIMENS: None. INDICATION: Three prior sections. The patient did not desire tubal ligation. Informed consent was obtained approximately 2 weeks ago and there were no changes on the day of her scheduled surgery. Her preoperative laboratories on the day of scheduled surgery were normal. DESCRIPTION OF PROCEDURE: Patient was taken to the operating room with an IV in place. She was placed in dorsal supine position with a leftward tilt. A Cody catheter was then placed without difficulty. heart tones after Cody catheter placement and spinal were normal. She was then prepped and draped in normal sterile fashion. A test of her abdomen showed that she was indeed numb and the patient's was called for. A Pfannenstiel skin incision over her prior three incisions was performed down to the layer of the fascia, which was nicked in the midline and extended the extent of the skin incision. The underlying rectus muscles under the anterior leaflet of the fascia were dissected off sharply without difficulty. This was repeated inferiorly. There was a significant amount of omental adhesions to the anterior abdomen wall. We were able to identify a breech in the peritoneum and confirmed that there was indeed no significant intraperitoneal adhesions, only the omental adhesions to the anterior abdominal wall. A stretching maneuver and a small amount of dissection with Metzenbaum scissors created a space at the vesicouterine peritoneum, which was where we were able to create a bladder flap. A low transverse uterine incision was then performed down to the amion. The uterine hysterotomy was stretched to adequacy. The bag of water was ruptured with an Allis clamp with clear fluid and the 's head was flexed and delivered through the uterine incision with fundal pressure. The obvious macrosomic infant was in great shape with a lusty cry and good tone. The cord was clamped times two and cut. Cord blood sample was obtained. The was handed off to the awaiting resuscitation team. Pitocin was started and the placenta was not removed until good tone was noted. The placenta was delivered through the incision with many trailing membranes left inside the uterus, of note. The uterus was delivered through the incision, wrapped in a warm sponge and the rest of the membranes were meticulously removed from the endometrial cavity with ring forceps. Bladder blade was replaced and a running suture #0 Vicryl from left to right in a locked fashion was used to close the hysterotomy. A running suture from left to right with an #0 Monocryl was used to imbricate. Several figure of eight stitches were used to obtain hemostasis. Irrigation was performed behind the uterus. The uterus was returned to the abdomen. There were no clots in the pericolic gutters and one more stitch was needed to obtain hemostasis after the uterus was returned to its anatomical position. Hemostasis was confirmed. There was never a fear of bladder injury or other organ injury. The peritoneum was closed from superior to inferior with a running suture of #3-0 Vicryl. The rectus bellies were inspected and found to be hemostatic and the fascia was reapproximated with #0 Vicryl from left to right with a running suture. Copious irrigation was performed of the subcutaneous space, which was also made to be hemostatic. This potential space was closed with #2-0 Vicryl from left to right without difficulty. The skin was closed with a subcuticular #4-0 Monocryl from left to right. Steri-Strips were placed, as well as a pressure dressing over the incision. The patient's legs were frogged. The uterus was noted to be firm at U-2 and a small amount of clots and debris were evacuated from the vagina and cervix with bimanual examination. All sponge, needle and instrument counts were correct times three.
--- NOTE | 2016-12-14 08:23 | IPNPDOC ---
Text Note Date of Service The patient was seen on 12/14/16. NOTE POD1 prog note States feeling well, no complaints. No heavy VB. Pain controlled. Ambulatory. UOP adequate, cam now out. Bonding well and breast feeding well. VSSAF CTAB RRR Ut at U-2, firm Ext no [employer] CDI, bandage removed CBC this AM appropriate a/p: Doing well. routine postop care. Sessions Lalitha LUGO, I+O VSLalitha I+O Laboratory Tests 12/14/16 07:10 Red Blood Count 3.55 L, Mean Corpuscular Volume 81.7, Mean Corpuscular Hemoglobin 26.4 L, Mean Corpuscular Hemoglobin Concent 32.4, Red Cell Distribution Width 15.3 H Vital Signs Date Time Temp Pulse Resp B/P (MAP) Pulse Ox O2 Delivery O2 Flow Rate FiO2 12/14/16 06:24 98.7 91 16 115/56 (75) 97 Room Air I&O- Last 24 Hours up to 6 AM 12/14/16 05:59 Intake Total 2500 ml Output Total 2125 ml Balance 375 ml KAREN GORDON MD Dec 14, 2016 08:23
[2016-12-14 10:00] VITALS: BP 132/57
[2016-12-14] MEDS: IBUPROFEN 800 MG TAB PO SCH ×2 (13:20→21:02)
[2016-12-14 14:00] VITALS: BP 127/58
[2016-12-14] MEDS: PERCOCET 5MG/325MG TAB PO PRN (18:03)
[2016-12-14 18:30] VITALS: BP 120/59
[2016-12-14 22:00] VITALS: BP 111/59
[2016-12-15 05:58] VITALS: BP 124/66
[2016-12-15] MEDS: IBUPROFEN 800 MG TAB PO SCH (06:30)
[2016-12-15] MEDS: PRENATAL VITAMINS CHEWABLE TABLET PO SCH (07:54)
[2016-12-15] MEDS: DOCUSATE SODIUM 100 MG CAP PO SCH (07:54)
[2016-12-15] MEDS: PERCOCET 5MG/325MG TAB PO PRN (07:56)
[2016-12-15] MEDS ORDERED: INFLUENZA QUADRIVALENT PF VACCINE 0.5ML SYRINGE (90686) IM ONE (09:00)
--- NOTE | 2016-12-15 10:10 | IPNPDOC ---
Text Note Date of Service The patient was seen on 12/15/16. NOTE POD2 prog note States feeling well, no complaints. No heavy VB. Pain controlled. Ambulatory. Voiding well. Bonding well, some issues with nursing, feels it will improve at home with pumping. Has a pump. No CP/SOB/LP. VSSAF Ut at U-2, firm Ext no [employer] CDI a/p: Doing well. d/c to home. Sessions VS,Lalitha, I+O VSLalitha, I+O Vital Signs Date Time Temp Pulse Resp B/P (MAP) Pulse Ox O2 Delivery O2 Flow Rate FiO2 12/15/16 08:53 18 12/15/16 05:58 98.7 85 124/66 (85) 12/14/16 22:00 Room Air 12/14/16 18:30 98 I&O- Last 24 Hours up to 6 AM 12/15/16 06:00 Intake Total 500 ml Output Total 200 ml Balance 300 ml SESSIONS,KAREN Ordonez MD Dec 15, 2016 10:10
--- NOTE | 2016-12-15 10:12 | DS.PDOC ---
Discharge Summary General Date of Admission Dec 13, 2016 at 07:04 Date of Discharge [id number] Discharge Summary PROCEDURES PERFORMED DURING STAY: Elective Repeat Delivery ADMITTING DIAGNOSIS: 1. Prior DISCHARGE DIAGNOSES: 1. Healthy infant HOSPITAL COURSE: Admitted for scheduled surgery. Uncomplicated, see operative note. DISCHARGE MEDICATIONS: Motrin, Percocet, Colace, Lanolin, Nor QD Physical exam: see note from this morning LABORATORY DATA: Please see below. ACTIVITY: as tolerated. Nothing in vagina for 6 weeks. No bathing for 4 weeks. No driving for 2 weeks. DIET: regular DISPOSITION:stable TIME SPENT ON DISCHARGE: Greater than 15 minutes. Sessions Vital Signs/I&Os Vital Signs Date Time Temp Pulse Resp B/P (MAP) Pulse Ox O2 Delivery O2 Flow Rate FiO2 12/15/16 08:53 18 12/15/16 05:58 98.7 85 124/66 (85) 12/14/16 22:00 Room Air 12/14/16 18:30 98 I&O- Last 24 Hours up to 6 AM 12/15/16 05:59 Intake Total 625 ml Output Total 200 ml Balance 425 ml Discharge Medications Scheduled Multivitamins/ ( 27-0.8 mg) 1 Tab Tab, 1 TAB PO DAILY, (Reported ) Miscellaneous Medications Acetaminophen (Mapap) 500 Mg Tab, 325 MG PO, (Reported) Allergies Coded Allergies: Latex (Unverified Allergy, Unknown, RASH ITCHING, 12/06/16) SESSIONS,KAREN Ordonez MD Dec 15, 2016 10:12
[2016-12-15] MEDS ORDERED: COLA100C5 PO (10:43)
[2016-12-15] MEDS ORDERED: OXYC1TAB23 PO ×2 (10:44→10:45)
[2016-12-15] MEDS ORDERED: IBUP-1114 PO (10:44)
== END 2016-12-15 11:05 | disposition home or self-care (01) | DRG 766 ==
LOC: M LDI 07:04 → M OBS 13:32
PROVIDERS: ADMIT Obstetrics & Gynecology; ATTEND Obstetrics & Gynecology
PROC: 10D00Z1 Extraction of Products of Conception, Low, Open Approach (ICD-10-PCS; principal; 2016-12-13)
DX: O34.211 Maternal care for low transverse scar from previous cesarean delivery (principal); Z37.0 Single live birth; Z3A.39 39 weeks gestation of pregnancy; Z91.040 Latex allergy status; O24.419 Gestational diabetes mellitus in pregnancy, unspecified control